=== PATIENT | female | born 1980 | race African-American/Black ===

== ENCOUNTER 2019-08-12 22:55 | Emergency (ER) | payer SELFPAY ==
[~2019-08-12] VITALS: Ht 170.2 cm; Wt 132.0 kg
[2019-08-12 23:09] VITALS: Ht 170.2 cm; Wt 132.0 kg
[2019-08-13 00:20] VITALS: BP 146/72
== END 2019-08-13 00:20 | disposition home or self-care (01) ==
LOC: ED 22:55
DX: G89.29 Other chronic pain (principal); M54.5 Low back pain
CPT/HCPCS: J1885

== ENCOUNTER 2019-11-29 17:27 | Emergency (ER) | payer OTHER ==
[~2019-11-29] VITALS: Ht 177.8 cm; Wt 129.3 kg
[2019-11-29 17:42] VITALS: Ht 177.8 cm; Wt 129.3 kg
[2019-11-29 19:00] VITALS: BP 132/110
== END 2019-11-29 19:00 | disposition home or self-care (01) ==
LOC: ED 17:27
DX: M54.40 Lumbago with sciatica, unspecified side (principal)
CPT/HCPCS: J1885